=== PATIENT | male | born 1980 | race African-American/Black ===

== ENCOUNTER 2016-05-12 13:31 | Emergency (ER) | payer OTHER | END 2016-05-12 13:37 | disposition home or self-care (01) | LOC: CFTX 13:31 | DX: S70.372A Other superficial bite of left thigh, initial encounter (principal); Z23 Encounter for immunization; W54.0XXA Bitten by dog, initial encounter; Y92.410 Unspecified street and highway as the place of occurrence of the external cause | CPT/HCPCS: 90471; 90715; 99283 ==